=== PATIENT | female | born 1970 | race Caucasian/White ===

== ENCOUNTER 2019-02-24 12:46 | Inpatient (IN) | payer MEDICAID ==
[~2019-02-24] VITALS: Ht 162.6 cm; Wt 78.0 kg
[~2019-02-24 12:46] MED LIST: ATEN-175; LISI10TA5
[2019-02-24] MEDS ORDERED: METO100T16 PO ×2 (13:10→22:30)
[2019-02-24] MEDS ORDERED: INSULIN (13:12)
[2019-02-24] MEDS ORDERED: LISI40TA4 PO (13:12)
[2019-02-24] MEDS ORDERED: SITA50TA3 PO (13:12)
[2019-02-24] MEDS ORDERED: METF-816 PO (13:12)
[2019-02-24] MEDS ORDERED: CITA10SO PO (13:16)
[2019-02-24] MEDS ORDERED: NITROGLYCERIN 0.4MG TABLET SL SL PRN (14:00)
[2019-02-24] MEDS ORDERED: ASPIRIN 81MG TABLET PO ONE (14:00)
[2019-02-24 14:19] LABS: BASOPHILS % 0.4 % (0.0-2.0); EOSINOPHILS % 1.4 % (0.0-5.0); HEMATOCRIT. 42.1 % (36.0-48.0); HEMOGLOBIN. 14.6 g/dL (12.0-16.0); LYMPHOCYTES % 25.4 % (20.0-50.0); MEAN CORPUSCULAR HEMOGLOBIN 29.6 pg (28.0-32.0); MEAN CORPUSCULAR VOLUME 85.7 fL (81.0-99.0); MEAN PLATELET VOLUME 7.8 fl (7.4-10.4); MONOCYTES % 4.2 % (2.0-8.0); NEUTROPHILS % 68.6 % (40.0-76.0); PLATELET 330 x1000/uL (130-400); RED BLOOD CELL COUNT 4.91 mill/uL (4.2-5.4); RED CELL DISTRIBUTION WIDTH 13.5 % (11.6-14.6)
[2019-02-24 14:26] LABS: CHLORIDE 103 mEq/L (98-107)
[2019-02-24 14:31] LABS: HCG SCREEN NEGATIVE
[2019-02-24 14:53] LABS: D-DIMER 0.84 mg/L FEU (<0.50); PARTIAL THROMBOPLASTIN TIME 29.2 sec (23.4-31.0); PROTHROMBIN TIME 10.4 sec (9.6-11.0)
[2019-02-24] MEDS ORDERED: IOHEXOL-350 100 ML BOTTLE ONE (16:32)
[2019-02-24] MEDS ORDERED: DOCUSATE SODIUM 100MG CAPSULE PO PRN (16:45)
[2019-02-24] MEDS ORDERED: IPRATROPIUM/ALBUTEROL 0.5-3(2.5)MG/3ML NEB INH PRN (16:45)
[2019-02-24] MEDS ORDERED: MAGNESIUM/ALUMINUM HYDROXIDE/SIMETHICONE 30ML UDC PO PRN (16:45)
[2019-02-24] MEDS ORDERED: ONDANSETRON HCL 4MG/2ML INJ IV PRN (16:45)
[2019-02-24] MEDS ORDERED: GUAIFENESIN 200MG/10ML SUGAR FREE UDC PO PRN (16:45)
[2019-02-24] MEDS ORDERED: DIPHENHYDRAMINE 50MG/ML VIAL IV PRN (16:45)
[2019-02-24] MEDS ORDERED: CLONIDINE 0.1MG TABLET PO PRN (16:45)
[2019-02-24] MEDS: ACETAMINOPHEN 325MG TABLET PO PRN (18:40)
[2019-02-24 20:00] VITALS: BP 124/85
[2019-02-24 21:40] VITALS: BP 151/75
[2019-02-24 22:30] VITALS: BP 151/75
[2019-02-24] MEDS ORDERED: HYDR25TA PO (22:30)
[2019-02-24] MEDS ORDERED: GLIP10TA10 PO (22:30)
[2019-02-24] MEDS ORDERED: FURO40TA5 PO (22:30)
[2019-02-24] MEDS ORDERED: GABA-290 PO (22:30)
[2019-02-24] MEDS ORDERED: ASPI-1158 PO (22:35)
[2019-02-24] MEDS ORDERED: CARV25TA47 PO (22:35)
[2019-02-24] MEDS ORDERED: AMLO10TA80 PO (22:35)
[2019-02-24] MEDS ORDERED: ATOR20TA65 PO (22:35)
[2019-02-24] MEDS ORDERED: DEXTROSE 50% WATER 50ML SYRINGE IV PRN (23:15)
[2019-02-25] VITALS (9 sets, daily range): BP systolic 121–160; BP diastolic 73–103
[2019-02-25] MEDS: BLOOD SUGAR DIAGNOSTIC STRIP TEST SCH ×4 (06:12→21:09)
[2019-02-25] MEDS: ACETAMINOPHEN 325MG TABLET PO PRN ×3 (06:14→17:30)
[2019-02-25 06:50] LABS: BASOPHILS % 0.3 % (0.0-2.0); EOSINOPHILS % 2.4 % (0.0-5.0); HEMATOCRIT. 37.5 % (36.0-48.0); LYMPHOCYTES % 34.7 % (20.0-50.0); MEAN CORPUSCULAR HEMOGLOBIN 29.7 pg (28.0-32.0); MEAN CORPUSCULAR VOLUME 85.5 fL (81.0-99.0); MEAN PLATELET VOLUME 7.8 fl (7.4-10.4); MONOCYTES % 5.9 % (2.0-8.0); NEUTROPHILS % 56.7 % (40.0-76.0); PLATELET 291 x1000/uL (130-400); RED BLOOD CELL COUNT 4.38 mill/uL (4.2-5.4); RED CELL DISTRIBUTION WIDTH 13.7 % (11.6-14.6)
[2019-02-25 07:32] LABS: CHLORIDE 106 mEq/L (98-107)
[2019-02-25 07:45] LABS: LDL CHOLESTEROL 150 mg/dL (5-100)
[2019-02-25 07:47] LABS: HDL CHOLESTEROL 49 mg/dL (40-59)
[2019-02-25] MEDS: ENOXAPARIN 40MG/0.4ML SYR SUBCUT SCH (08:38)
[2019-02-25] MEDS: INSULIN LISPRO 100 UNITS/ML SUBCUT SCH ×4 (08:39→21:09)
[2019-02-25] MEDS ORDERED: NITROGLYCERIN 0.4MG TABLET SL SL PRN ×2 (16:58→19:00)
[2019-02-26 04:00] VITALS: BP 132/83
[2019-02-26] MEDS: BLOOD SUGAR DIAGNOSTIC STRIP TEST SCH ×4 (07:30→21:35)
[2019-02-26] MEDS: ACETAMINOPHEN 325MG TABLET PO PRN (07:30)
[2019-02-26 07:54] VITALS: BP 142/89
[2019-02-26] MEDS: INSULIN LISPRO 100 UNITS/ML SUBCUT SCH ×4 (10:08→21:35)
[2019-02-26] MEDS: ENOXAPARIN 40MG/0.4ML SYR SUBCUT SCH (10:10)
[2019-02-26 12:00] VITALS: BP 126/91
[2019-02-26] MEDS ORDERED: TRAMADOL 50MG TABLET PO NR (12:45)
[2019-02-26 16:00] VITALS: BP 136/93
[2019-02-26 20:00] VITALS: BP 157/83
[2019-02-27] VITALS: BP 155/95
[2019-02-27] MEDS: ACETAMINOPHEN 325MG TABLET PO PRN (00:07)
[2019-02-27 04:00] VITALS: BP 144/94
[2019-02-27] MEDS: BLOOD SUGAR DIAGNOSTIC STRIP TEST SCH ×2 (07:00→12:45)
[2019-02-27] MEDS: INSULIN LISPRO 100 UNITS/ML SUBCUT SCH (07:34)
[2019-02-27 08:00] VITALS: BP 144/96
[2019-02-27] MEDS: ENOXAPARIN 40MG/0.4ML SYR SUBCUT SCH (09:00)
[2019-02-27] MEDS ORDERED: BARIUM SULFATE 176 GM SUSP.RECON ONE (09:14)
[2019-02-27 12:04] VITALS: BP 124/77
== END 2019-02-27 12:55 | disposition home or self-care (01) | DRG 133 ==
LOC: ER 14:09 → 6WST 16:09 → EDBEDREQTM 16:12 → EDBEDREQ 16:12 → ENRESERV 20:32 → 6WST 02-25 09:33
PROVIDERS: ADMIT Internal Medicine; ATTEND Internal Medicine
DX: J96.00 Acute respiratory failure, unspecified whether with hypoxia or hypercapnia (principal); I11.0 Hypertensive heart disease with heart failure; I50.9 Heart failure, unspecified; R59.0 Localized enlarged lymph nodes; R91.1 Solitary pulmonary nodule; E04.1 Nontoxic single thyroid nodule; E78.5 Hyperlipidemia, unspecified; D18.03 Hemangioma of intra-abdominal structures; E11.9 Type 2 diabetes mellitus without complications; F41.9 Anxiety disorder, unspecified; Z88.5 Allergy status to narcotic agent; Z88.8 Allergy status to other drugs, medicaments and biological substances; Z79.899 Other long term (current) drug therapy
CPT/HCPCS: 36415; 71045; 71275; 74220; 74230; 80061; 82962; 83735; 83880; 84100; 84443; 84484; 84703; 85379; 92610; 92611; 93005; 93970; 96374; 97162; 97166; 97530; 99285; J1650; J1815; Q9967

== ENCOUNTER 2019-08-16 12:10 | Emergency (ER) | payer MEDICAID ==
[~2019-08-16] VITALS: Ht 162.6 cm; Wt 77.0 kg
[~2019-08-16 12:10] MED LIST changes: +AMLO10TA80 PO; +ASPI-1158 PO; +ATOR20TA65 PO; +CARV25TA47 PO; +CITA10SO PO; +FURO40TA5 PO; +GABA-290 PO; +GLIP10TA10 PO; +HYDR25TA PO; +INSULIN; +LISI40TA4 PO; +METF-816 PO; +METO100T16 PO; +SITA50TA3 PO
[2019-08-16] MEDS ORDERED: CLONIDINE 0.2MG TABLET PO ONE (17:15)
[2019-08-16 18:26] LABS: BASOPHILS % 0.8 % (0.0-2.0); EOSINOPHILS % 1.4 % (0.0-5.0); HEMATOCRIT. 41.7 % (36.0-48.0); HEMOGLOBIN. 14.2 g/dL (12.0-16.0); LYMPHOCYTES % 29.5 % (20.0-50.0); MEAN CORPUSCULAR HEMOGLOBIN 29.5 pg (28.0-32.0); MEAN CORPUSCULAR VOLUME 86.8 fL (81.0-99.0); MEAN PLATELET VOLUME 8.3 fl (7.4-10.4); MONOCYTES % 4.8 % (2.0-8.0); NEUTROPHILS % 63.5 % (40.0-76.0); PLATELET 266 x1000/uL (130-400); RED BLOOD CELL COUNT 4.81 mill/uL (4.2-5.4); RED CELL DISTRIBUTION WIDTH 13.4 % (11.6-14.6)
[2019-08-16] MEDS ORDERED: LABETALOL 5MG/ML SYR 20 MG/4 ML SYRINGE IV ONE (18:30)
[2019-08-16 18:31] LABS: CHLORIDE 105 mEq/L (98-107)
[2019-08-16 19:06] LABS: T4 FREE 1.02 ng/dL (0.76-1.46)
[2019-08-16] MEDS ORDERED: ACETAMINOPHEN 650MG/20.3ML UDC PO ONE (19:45)
[2019-08-16] MEDS ORDERED: DIPHENHYDRAMINE 50MG/ML VIAL IV ONE (20:00)
[2019-08-16] MEDS ORDERED: METOCLOPRAMIDE HCL 10MG/2ML VIAL IV ONE (20:00)
[2019-08-16] MEDS ORDERED: SODIUM CHLORIDE 0.9% 500 ML IV ONE (20:00)
[2019-08-16 22:00] VITALS: BP 146/92
== END 2019-08-16 22:18 | disposition home or self-care (01) ==
LOC: ER 12:19
DX: I10 Essential (primary) hypertension (principal); E11.9 Type 2 diabetes mellitus without complications; Z88.5 Allergy status to narcotic agent; Z88.9 Allergy status to unspecified drugs, medicaments and biological substances; Z88.6 Allergy status to analgesic agent; Z79.899 Other long term (current) drug therapy
CPT/HCPCS: 36415; 70450; 71045; 80053; 81025; 83880; 84439; 84443; 84484; 85025; 93005; 96374; 96375; 99284; J1200; J2765; J7040; Z7610